=== PATIENT | female | born 1945 | race Caucasian/White ===

== ENCOUNTER 2018-11-01 06:15 | Day surgery (SDC) | payer OTHER ==
[~2018-11-01] VITALS: Ht 157.5 cm; Wt 72.6 kg
[2018-11-01] MEDS ORDERED: CEFAZOLIN SOD 1 GM in D5W 50 ML IV ONE ×2 (07:00→07:30)
[2018-11-01] MEDS ORDERED: LR 1,000 ML IV SCH (09:27)
[2018-11-01] MEDS ORDERED: ONDANSETRON HCL 4 MG/2 ML VIAL IVP PRN (09:30)
[2018-11-01] MEDS ORDERED: MORPHINE 4 MG/ML INJ. SYRINGE IVP PRN ×3 (09:30)
[2018-11-01] MEDS ORDERED: METOCLOPRAMIDE HCL 10 MG/2 ML VIAL IVP PRN (09:30)
[2018-11-01] MEDS ORDERED: D5/0.45 NS 1,000 ML IV SCH (09:47)
[2018-11-01] MEDS ORDERED: HYDROcodone/ACETAMIN 5-325 MG TAB (NORCO/ VICODIN) PO PRN ×2 (10:00)
[2018-11-01] MEDS ORDERED: HYDROmorphone 1 MG INJ. 1 MG/ML AMPUL IVP PRN (10:00)
[2018-11-01 10:30] VITALS: BP_SYST 165
== END 2018-11-01 11:56 | disposition home or self-care (01) ==
LOC: SMU 06:15 → SDS 06:15
PROVIDERS: ATTEND Colon & Rectal Surgery
DX: C56.9 Malignant neoplasm of unspecified ovary (principal); N18.2 Chronic kidney disease, stage 2 (mild); K21.9 Gastro-esophageal reflux disease without esophagitis; E78.5 Hyperlipidemia, unspecified; I25.2 Old myocardial infarction; I25.119 Atherosclerotic heart disease of native coronary artery with unspecified angina pectoris; G62.9 Polyneuropathy, unspecified; I12.9 Hypertensive chronic kidney disease with stage 1 through stage 4 chronic kidney disease, or unspecified chronic kidney disease; D64.9 Anemia, unspecified; Z98.61 Coronary angioplasty status; Z79.82 Long term (current) use of aspirin; Z79.899 Other long term (current) drug therapy; C77.2 Secondary and unspecified malignant neoplasm of intra-abdominal lymph nodes
CPT/HCPCS: 36571; 71045; 77001; C1788; J0690; J7060; J7120; 76000